=== PATIENT | male | born 1980 | race Caucasian/White ===

== ENCOUNTER 2017-03-16 12:19 | Emergency (ER) | payer OTHER ==
--- NOTE | 2017-03-16 13:54 | RAD ---
Name: JOVANA AU Exam: Right elbow Comparison: None Clinical history: Right elbow pain. Fall. Initial encounter. Findings: 3 views of the right elbow are submitted. Bone density is normal. Joint spaces are maintained. Joint effusion is present. Occult fracture is therefore suspected. There is no dislocation, periosteal reaction or foreign body. Impression: Right elbow joint effusion. Occult fracture must be considered.
== END 2017-03-16 14:01 | disposition home or self-care (01) ==
LOC: ED 12:19
DX: M25.521 Pain in right elbow (principal); F17.210 Nicotine dependence, cigarettes, uncomplicated; X50.0XXA Overexertion from strenuous movement or load, initial encounter; Y93.43 Activity, gymnastics; Y92.252 Music hall as the place of occurrence of the external cause

== ENCOUNTER 2017-03-19 20:47 | Emergency (ER) | payer OTHER ==
[2017-03-19 22:40] LABS: ABSOLUTE NEUTROPHIL COUNT 6.5 K/mm3 (1.8-7.7); BASO % 0.4 % (0.2-1.0); EOS # 0.1 (0.0-0.5); EOS % 1.3 % (0.9-2.9); HEMATOCRIT 38.8 % (32.0-52.0); HEMOGLOBIN 12.9 gm/l (14.0-18.0); IMM NEUT% 0.3 % (0-1); LYMPH # 1.9 (1.0-4.8); LYMPH % 20.1 % (15-45); MEAN CORPUSCULAR HEMOGLOBIN 29.3 pg (27.0-31.0); MEAN CORPUSCULAR HGB CONC 33.2 g/dl (33.0-37.0); MEAN PLATELET VOLUME 8.6 fl (7.4-10.4); MONO # 0.8 (0.0-0.8); MONO % 8.4 % (4-12); NEUT % 69.5 % (43-75); PLATELET COUNT 222 K/mm3 (130-400); RED CELL DISTRIBUTION WIDTH 12.8 % (11.5-14.5)
[2017-03-19 22:55] LABS: CALCIUM 9.4 mg/dL (8.6-10.3)
[2017-03-19 23:17] LABS: C-REACTIVE PROTEIN 1.9 mg/dl (<1.0)
[2017-03-20] MEDS ORDERED: CEPHALEXIN 500 MG CAPSULE ONE (00:08)
[2017-03-20] MEDS ORDERED: KETOROLAC TROMETHAMINE 15 MG/ML VIAL ONE (00:08)
== END 2017-03-20 00:33 | disposition home or self-care (01) ==
LOC: ED 20:47
DX: S42.401D Unspecified fracture of lower end of right humerus, subsequent encounter for fracture with routine healing (principal); R50.9 Fever, unspecified; X58.XXXD Exposure to other specified factors, subsequent encounter